=== PATIENT | female | born 1990 | race Two or more races ===

== ENCOUNTER 2019-04-08 06:16 | Emergency (ER) | payer BC, OTHER ==
[2019-04-08 07:15] VITALS: BMI 31.3
[2019-04-08 08:07] LABS: HCG,QUALITATIVE URINE Positive
[2019-04-08 08:09] LABS: PH,URINE 6.5 (5.0-8.0); URINE APPEARANCE CLEAR; URINE BILIRUBIN NEGATIVE (NEGATIVE); URINE COLOR YELLOW; URINE GLUCOSE (UA) NEGATIVE (NEGATIVE); URINE KETONE NEGATIVE (NEGATIVE); URINE LEUK ESTERASE NEGATIVE (NEGATIVE); URINE NITRITE NEGATIVE (NEGATIVE); URINE PROTEIN NEGATIVE (NEGATIVE); URINE UROBILINOGEN 0.2 mg/dL (0.2-1.0)
--- NOTE | 2019-04-08 08:27 | PDOC ---
Attending Attestation - Resident Resident Name: ChinolorenaDileep - ED Attending Attestation I have performed the following: I have examined & evaluated the patient, The case was reviewed & discussed with the resident, I agree w/resident's findings & plan, Exceptions are as noted - HPI HPI: 28 yo F presents with R breast pain and R pelvic pain. She has had a lump to the R breast for the past 6 months, for which she went to a free clinic and they told her it was benign. She has not had any workup for it. Denies breast discharge. She notices some lumps on the L side as well, but not tender like the R side. The tenderness and swelling worsens during her monthly menses. In addition, she has had R pelvic pain for the past few days, had a positive test at clinic. No ultrasound to date. Denies discharge, bleeding. - Physicial Exam PE: GENERAL: Awake, alert, and fully oriented, in no acute distress HEAD: No signs of trauma EYES: PERRLA, EOMI, sclera anicteric, conjunctiva clear ENT: Auricles normal inspection, hearing grossly normal, nares patent, oropharynx clear without exudates. Moist mucosa NECK: Normal ROM, supple, no lymphadenopathy, JVD, or masses LUNGS: Breath sounds equal, clear to auscultation bilaterally. No wheezes, and no crackles HEART: Regular rate and rhythm, normal S1 and S2, no murmurs, rubs or gallops ABDOMEN: Soft, +minimal R pelvic tenderness, normoactive bowel sounds. No guarding, no rebound. No masses EXTREMITIES: Normal range of motion, no edema. No clubbing or cyanosis. No cords, erythema, or tenderness NEUROLOGICAL: Cranial nerves II through XII grossly intact. Normal speech, normal gait. Motor and sensation intact SKIN: Warm, Dry, normal turgor, no rashes or lesions noted. BREAST: R breast with soft, mobile mass to lower outer quadrant. No discharge. No asymmetry. - Medical Decision Making Pt with small mobile soft mass in the R breast, likely fibrocystic changes, however, will obtain sono to further evaluate, especially in light of positive test. Will also obtain labs and pelvic sono to confirm IUP.
--- NOTE | 2019-04-08 08:44 | PDOC ---
History of Present Illness - General Chief Complaint: Pain Stated Complaint: BREAST PROBLEM Time Seen by Provider: 04/08/19 07:29 History Source: Patient Exam Limitations: No Limitations - History of Present Illness Initial Comments: 04/08/19 08:37 28F with no PMH who presents to the ER with multiple complaints. The patient states that she's had a breast lump in her R breast for "months" but due to insurance issues, has not had that worked up. The lump fluctuates in size depending on what part of her menstrual cycle she is on. She denies any redness or abnormal drainage. She also endorses 3-4 days of RLQ abdominal pain which is sharp, occurs every 3-4 hours, and is associated with nausea but no fever, chills, anorexia, diarrhea, vomiting, dysuria, or vaginal discharge. Past History - Past Medical History Allergies/Adverse Reactions: Allergies Allergy/AdvReac Type Severity Reaction Status Date / Time No Known Allergies Allergy Verified 04/08/19 06:42 Home Medications: Ambulatory Orders No Home Medications 0 dose .ROUTE UTDICT 06/12/13 COPD: No - Reproductive History (#): 0 Para: 0 - Immunization History Immunization Up to Date: Yes - Suicide/Smoking/Psychosocial Hx Smoking Status: Yes Smoking History: Never smoked Have you smoked in the past 12 months: No Number of Cigarettes Smoked Daily: 4 Information on smoking cessation initiated: No 'Breaking Loose' booklet given: 01/22/16 Hx Alcohol Use: No Drug/Substance Use Hx: No Substance Use Type: None Hx Substance Use Treatment: No Review of Systems - Review of Systems Able to Perform ROS?: Yes Comments:: 04/08/19 08:44 GENERAL/CONSTITUTIONAL: No fever or chills. No weakness. HEAD, EYES, EARS, NOSE AND THROAT: No change in vision. No ear pain or discharge. No sore throat. CARDIOVASCULAR: No chest pain, palpitations, or lightheadedness. BREAST: + for lump in R breast. RESPIRATORY: No cough, wheezing, shortness of breath, or hemoptysis. GASTROINTESTINAL: + for abdominal pain and nausea. No vomiting, diarrhea, or constipation. GENITOURINARY: No dysuria, frequency, hematuria, or change in urination. MUSCULOSKELETAL: No joint or muscle swelling or pain. No neck or back pain. SKIN: No rash or lesions. NEUROLOGIC: No headache, numbness, tingling, focal weakness, loss of consciousness, or change in strength/sensation. *Physical Exam - Vital Signs Last Vital Signs Temp Pulse Resp BP Pulse Ox 98.2 F 76 18 114/71 100 04/08/19 07:03 04/08/19 07:03 04/08/19 07:03 04/08/19 07:03 04/08/19 07:03 - Physical Exam Comments: 04/08/19 08:45 GENERAL: Well developed, well nourished. Awake and alert. No acute distress. HEENT: Normocephalic, atraumatic. Hearing grossly normal. Moist mucous membranes. PERRLA, EOMI. No conjunctival pallor. Sclera are non-icteric. NECK: Supple. Full ROM. No JVD. CARDIOVASCULAR: Regular rate and rhythm. No murmurs, rubs, or gallops. PULMONARY: No evidence of respiratory distress. Lungs clear to auscultation bilaterally. No wheezing, rales or rhonchi. BREAST: Done under supervision of Dr. Brito. R breast shows 2cm lump at 9oclock. ABDOMINAL: Soft. TTP in suprapubic abdomen. No RLQ tenderness. Non-distended. No rebound or guarding. GENITOURINARY: No CVA tenderness bilaterally. MUSCULOSKELETAL: Normal range of motion at all joints. No bony deformities or tenderness. EXTREMITIES: No cyanosis. No clubbing. No edema. No calf tenderness or swelling. SKIN: Warm and dry. Normal capillary refill. No rashes. No jaundice. NEUROLOGICAL: Alert, awake, appropriate. Cranial nerves 2-12 grossly intact. Normal speech. Gait is normal without ataxia. PSYCHIATRIC: Cooperative. Good eye contact. Appropriate mood and affect. ED Treatment Course - LABORATORY CBC & Chemistry Diagram: 04/08/19 08:33 04/08/19 08:33 - ADDITIONAL ORDERS Additional order review: Laboratory Results 04/08/19 07:45 Urine Color Yellow Urine Appearance Clear Urine pH 6.5 Ur Specific Fay 1.015 Urine Protein Negative Urine Glucose (UA) Negative Urine Ketones Negative Urine Blood Negative Urine Nitrite Negative Urine Bilirubin Negative Urine Urobilinogen 0.2 Ur Leukocyte Esterase Negative Urine HCG, Qual Positive - RADIOLOGY Radiology Studies Ordered: Category Date Time Status BREAST US RIGHT COMPLETE [US] Routine Ultrasound 04/08/19 08:17 Ordered TRANSVAGINAL US PREG [US] Stat Ultrasound 04/08/19 08:17 Ordered Medical Decision Making - Medical Decision Making 04/08/19 08:46 28F with no PMH, by home test, LMP February 28 who presents to the ER for complaints of a breast mass and RLQ pain. No confirmation of IUP. Will obtain b-quant and transvaginal US as well as breast US. Pending labs and imaging. Pt well appearing otherwise. UA/preg shows + w/o UTI. 04/08/19 13:36 US unclear for IUP. I have informed the patient to f/u for breast and pelvic sono/repeat labs. SW has seen the patient and given her information for f/u. *DC/Admit/Observation/Transfer Diagnosis at time of Disposition: Breast lump in female and not yet delivered Qualifiers: Trimester: first trimester Qualified Code(s): Z34.91 - Encounter for supervision of normal , unspecified, first trimester - Discharge Dispostion Disposition: HOME Condition at time of disposition: Stable Decision to Admit order: No - Referrals - Patient Instructions Printed Discharge Instructions: Support (Alternative Therapy) Additional Instructions: Please follow up on 04/10/19, for a repeat blood test and ultrasound. Please return to the ER if you develop any worsening pain, bleeding, nausea, vomiting, fever, chills, chest pain, or shortness of breath. - Post Discharge Activity
[2019-04-08 09:50] LABS: BASO % 0.5 % (0-2.0); HEMATOCRIT 43.2 % (32.4-45.2); HEMOGLOBIN 14.6 GM/dL (10.7-15.3); LYMPH % 18.3 % (8-40); MCH 29.3 pg (25.7-33.7); MCHC 33.9 g/dl (32.0-36.0); MEAN CELL VOLUME 86.6 fl (80-96); MEAN PLT VOLUME 8.4 fl (7.5-11.1); NEUT % 72.2 % (42.8-82.8); PLATELET COUNT 308 K/MM3 (134-434); RBC 4.99 M/mm3 (3.60-5.2); RDW 14.2 % (11.6-15.6); WHITE BLOOD COUNT 9.1 K/mm3 (4.0-10.0)
[2019-04-08 09:56] LABS: INR 1.04 (0.83-1.09); PROTHROMBIN TIME (PATIENT) 12.3 SEC (9.7-13.0)
[2019-04-08 10:37] LABS: ALBUMIN 3.7 g/dl (3.4-5.0); BILIRUBIN,TOTAL 0.5 mg/dL (0.2-1); BLOOD UREA NITROGEN 10.1 mg/dL (7-18); CALCIUM 8.8 mg/dL (8.5-10.1); CREATININE 0.7 mg/dL (0.55-1.3); POTASSIUM 4.2 mmol/L (3.5-5.1); TOT PROT 7.4 g/dl (6.4-8.2)
[2019-04-08 14:21] VITALS: BP 114/68; PULSE 70; TEMP 98
== END 2019-04-08 14:21 | disposition home or self-care (01) ==
LOC: JER 06:16
DX: N63.0 Unspecified lump in unspecified breast (principal); Z34.91 Encounter for supervision of normal pregnancy, unspecified, first trimester
CPT/HCPCS: 36415; 76641-TC-RT; 76817-TC; 80053; 81003; 84443; 84702; 84703; 85025; 85610; 99281-25

== ENCOUNTER 2019-04-10 14:00 | Emergency (ER) | payer SELFPAY ==
[2019-04-10 14:14] VITALS: BP 121/62; PULSE 86; TEMP 98.2; BMI 31.3
--- NOTE | 2019-04-10 14:16 | PDOC ---
History of Present Illness - General Chief Complaint: [facility] – [place] Stated Complaint: FOLLOW UP VISIT Time Seen by Provider: 04/10/19 14:15 History Source: Patient Exam Limitations: No Limitations Past History - Travel Traveled outside of the country in the last 30 days: No Close contact w/someone who was outside of country & ill: No - Past Medical History Allergies/Adverse Reactions: Allergies Allergy/AdvReac Type Severity Reaction Status Date / Time No Known Allergies Allergy Verified 04/08/19 06:42 Home Medications: Ambulatory Orders No Home Medications 0 dose .ROUTE UTDICT 06/12/13 COPD: No - Reproductive History (#): 0 Para: 0 - Immunization History Immunization Up to Date: Yes - Suicide/Smoking/Psychosocial Hx Smoking Status: Yes Smoking History: Never smoked Have you smoked in the past 12 months: No Number of Cigarettes Smoked Daily: 4 Information on smoking cessation initiated: No 'Breaking Loose' booklet given: 01/22/16 Hx Alcohol Use: No Drug/Substance Use Hx: No Substance Use Type: None Hx Substance Use Treatment: No Review of Systems - Review of Systems Able to Perform ROS?: Yes Comments:: 04/10/19 14:42 CONSTITUTIONAL: Absent: fever, chills, diaphoresis, generalized weakness, malaise, loss of appetite HEENT: Absent: rhinorrhea, nasal congestion, throat pain, throat swelling, difficulty swallowing, mouth swelling, ear pain, eye pain, visual Changes CARDIOVASCULAR: Absent: chest pain, loss of consciousness, palpitations, irregular heart rate, peripheral edema RESPIRATORY: Absent: cough, shortness of breath, dyspnea with exertion, orthopnea, wheezing, stridor, hemoptysis GASTROINTESTINAL: Absent: abdominal pain, abdominal distension, nausea, vomiting, diarrhea, constipation, melena, hematochezia GENITOURINARY: Absent: dysuria, frequency, urgency, hesitancy, hematuria, flank pain, genital pain MUSCULOSKELETAL: Absent: myalgia, arthralgia, joint swelling SKIN: Present: rash Absent: itching, pallor NEUROLOGIC: Absent: headache, focal weakness or paresthesias, dizziness, unsteady gait, seizure, mental status changes, bladder or bowel incontinence PSYCHIATRIC: Absent: anxiety, depression, suicidal or homicidal ideation, hallucinations. Is the patient limited Bulgarian proficient: No *Physical Exam - Vital Signs Last Vital Signs Temp Pulse Resp BP Pulse Ox 98.2 F 86 18 121/62 98 04/10/19 14:11 04/10/19 14:11 04/10/19 14:11 04/10/19 14:11 04/10/19 14:11 - Physical Exam Comments: 04/10/19 14:44 GENERAL: Well developed, well nourished. Awake and alert. No acute distress. ABDOMINAL: Soft. Non-tender. Non-distended. No rebound or guarding. No organomegaly. Normoactive bowel sounds. MUSCULOSKELETAL Normal range of motion at all joints. No bony deformities or tenderness. No CVA tenderness. EXTREMITIES: No cyanosis. No clubbing. No edema. No calf tenderness. SKIN: Blisters/wheals present to the R arch of the foot. Warm and dry. Normal capillary refill. No jaundice. NEUROLOGICAL: Alert, awake, appropriate. Cranial nerves 2-12 intact. No deficits to light touch and temperature in face, upper extremities and lower extremities. No motor deficits in the in face, upper extremities and lower extremities. Normoreflexic in the upper and lower extremities. Normal speech. Toes are down- going bilaterally. Gait is normal without ataxia. PSYCHIATRIC: Cooperative. Good eye contact. Appropriate mood and affect. Medical Decision Making - Medical Decision Making 04/10/19 14:45 the patient is a 28-year-old female with no past medical history who presents to the ER today for repeat beta testing and repeat ultrasound to evaluate her . She was seen 2 days ago in the ED and was told she might have an early IUP but to follow up in 2 days to confirm. She also notes she has got a rash to the inside of her foot. She states that she used a bug spray yesterday and the blister started afterwards. Denies fevers, chills, abdominal pain, vaginal bleeding, frequency, urgency and hematuria. A/P: Repeat beta and ultrasound On exam no abdominal tenderness. The right arch of the foot shows wheals consistent with a allergic reaction. Potentially to the bug spray or may be bug bites. Treat with bacitracin Patient to go to ultrasound and have her blood drawn for evaluation. Reevaluate 04/10/19 15:32 TVUS is unchanged from 04/08/19, no pole identified yet, however there is a gestational sac in the uterus. 4cm R ovarian cyst as well. Beta-Hcg doubled in the last two days, suspect normal at 5 weeks, still early for a pole DC home with OB follow up in one week I discussed the physical exam findings, ancillary test results and final diagnoses with the patient. I answered all of the patient's questions. The patient was satisfied with the care received and felt comfortable with the discharge plan and treatment plan. The Patient agrees to follow up with the primary care physician/specialist within 24-72 hours. Return precautions were given. *DC/Admit/Observation/Transfer Diagnosis at time of Disposition: Qualifiers: Weeks of gestation: less than 8 weeks Qualified Code(s): Z3A.01 - Less than 8 weeks gestation of - Discharge Dispostion Disposition: HOME Condition at time of disposition: Stable Decision to Admit order: No - Referrals Referrals: Kandis Bashir DO [Staff Physician] - - Patient Instructions Printed Discharge Instructions: DI for -- Discomforts and Remedies Additional Instructions: Your ultrasound is unchanged since Thursday, but your lab work shows increasing hormone I suspect that this is a normal Please follow up with OB in one week for repeat ultrasound and blood work You may use bacitracin on your foot Return to the ER if you have vaginal bleeding, fever, abdominal pain, or if you have any changes in your symptoms - Post Discharge Activity
== END 2019-04-10 15:39 | disposition home or self-care (01) ==
LOC: JERFT 14:00
DX: O36.80X0 Pregnancy with inconclusive fetal viability, not applicable or unspecified (principal); Z32.01 Encounter for pregnancy test, result positive; Z3A.01 Less than 8 weeks gestation of pregnancy; T78.40XA Allergy, unspecified, initial encounter; X58.XXXA Exposure to other specified factors, initial encounter
CPT/HCPCS: 36415; 76817-TC; 84702; 99281-25

== ENCOUNTER 2019-04-21 05:13 | Emergency (ER) | payer OTHER ==
[2019-04-21 05:36] VITALS: BP 120/83; PULSE 83; TEMP 98.3; BMI 31.3
[2019-04-21 08:18] LABS: BASO % 0.8 % (0-2.0); EOS % 2.3 % (0-4.5); HEMATOCRIT 40.1 % (32.4-45.2); HEMOGLOBIN 13.6 GM/dL (10.7-15.3); LYMPH % 19.4 % (8-40); MEAN CELL VOLUME 85.4 fl (80-96); MEAN PLT VOLUME 8.1 fl (7.5-11.1); MONO % 5.7 % (3.8-10.2); NEUT % 71.8 % (42.8-82.8); RDW 13.5 % (11.6-15.6); WHITE BLOOD COUNT 9.9 K/mm3 (4.0-10.0)
--- NOTE | 2019-04-21 08:27 | PDOC ---
History of Present Illness - General Chief Complaint: Pain Stated Complaint: ABD PAIN Time Seen by Provider: 04/21/19 05:23 History Source: Patient Exam Limitations: No Limitations - History of Present Illness Initial Comments: 28 yo F presents at approximately 7 WGA with intermittent vag bleeding, pelvic cramping. She has had prior ultrasounds in the ED, did not find an IUP to date. She has been unable to follow up with a buckle wire inserter due to insurance issues, so she has not yet had an ultrasound that has confirmed it. She states she had vag bleeding for 3 days this past week, which had her concerned. Denies vag discharge, dysuria. Past History - Past Medical History Allergies/Adverse Reactions: Allergies Allergy/AdvReac Type Severity Reaction Status Date / Time No Known Allergies Allergy Verified 04/21/19 05:36 Home Medications: Ambulatory Orders No Home Medications 0 dose .ROUTE UTDICT 06/12/13 COPD: No - Reproductive History (#): 0 Para: 0 - Immunization History Immunization Up to Date: Yes - Suicide/Smoking/Psychosocial Hx Smoking Status: Yes Smoking History: Never smoked Have you smoked in the past 12 months: No Number of Cigarettes Smoked Daily: 4 'Breaking Loose' booklet given: 01/22/16 Hx Alcohol Use: No Drug/Substance Use Hx: No Substance Use Type: None Hx Substance Use Treatment: No Review of Systems - Review of Systems Able to Perform ROS?: Yes Comments:: GENERAL/CONSTITUTIONAL: No fever or chills. No weakness. HEAD, EYES, EARS, NOSE AND THROAT: No change in vision. No ear pain or discharge. No sore throat. CARDIOVASCULAR: No chest pain or shortness of breath. RESPIRATORY: No cough, wheezing, or hemoptysis. GASTROINTESTINAL: No nausea, vomiting, diarrhea or constipation. GENITOURINARY: No dysuria, frequency, or change in urination. MUSCULOSKELETAL: No joint or muscle swelling or pain. No neck or back pain. SKIN: No rash. NEUROLOGIC: No headache, vertigo, loss of consciousness, or change in strength/ sensation. ENDOCRINE: No increased thirst. No abnormal weight change. HEMATOLOGIC/LYMPHATIC: No anemia, easy bleeding, or history of blood clots. ALLERGIC/IMMUNOLOGIC: No hives or skin allergy. *Physical Exam - Vital Signs Last Vital Signs Temp Pulse Resp BP Pulse Ox 98.3 F 83 14 120/83 100 04/21/19 05:34 04/21/19 05:34 04/21/19 05:34 04/21/19 05:34 04/21/19 05:34 - Physical Exam Comments: GENERAL: Awake, alert, and fully oriented, in no acute distress HEAD: No signs of trauma EYES: PERRLA, EOMI, sclera anicteric, conjunctiva clear ENT: Auricles normal inspection, hearing grossly normal, nares patent, oropharynx clear without exudates. Moist mucosa NECK: Normal ROM, supple, no lymphadenopathy, JVD, or masses LUNGS: Breath sounds equal, clear to auscultation bilaterally. No wheezes, and no crackles HEART: Regular rate and rhythm, normal S1 and S2, no murmurs, rubs or gallops ABDOMEN: Soft, nontender, normoactive bowel sounds. No guarding, no rebound. No masses EXTREMITIES: Normal range of motion, no edema. No clubbing or cyanosis. No cords, erythema, or tenderness NEUROLOGICAL: Cranial nerves II through XII grossly intact. Normal speech, normal gait. Motor and sensation intact SKIN: Warm, dry, normal turgor, no rashes or lesions noted. ED Treatment Course - LABORATORY CBC & Chemistry Diagram: 04/21/19 07:46 04/21/19 07:46 - RADIOLOGY Radiology Studies Ordered: Category Date Time Status TRANSVAGINAL US PREG [US] Stat Ultrasound 04/21/19 08:25 Ordered Medical Decision Making - Medical Decision Making Ultrasound obtained, heart motion detected, rate 120s. She has f/u with the clinic this week. *DC/Admit/Observation/Transfer Diagnosis at time of Disposition: Qualifiers: Weeks of gestation: less than 8 weeks Qualified Code(s): Z3A.01 - Less than 8 weeks gestation of Abdominal pain Qualifiers: Abdominal location: unspecified location Qualified Code(s): R10.9 - Unspecified abdominal pain - Discharge Dispostion Disposition: HOME Condition at time of disposition: Stable Decision to Admit order: No - Referrals - Patient Instructions Printed Discharge Instructions: DI for Threatened - Post Discharge Activity
[2019-04-21 08:55] LABS: PLATELET COUNT 257 K/MM3 (134-434)
[2019-04-21 09:08] LABS: ALBUMIN 3.4 g/dl (3.4-5.0); BILIRUBIN,TOTAL 0.3 mg/dL (0.2-1); BLOOD UREA NITROGEN 7.1 mg/dL (7-18); CALCIUM 9.1 mg/dL (8.5-10.1); CREATININE 0.7 mg/dL (0.55-1.3); TOT PROT 6.9 g/dl (6.4-8.2)
[2019-04-21 09:09] LABS: EPI CELLS 14.7 /HPF (0-5/HPF); HYALINE CASTS 7 /lpf (0-8); PH,URINE 7.5 (5.0-8.0); URINE APPEARANCE CLEAR; URINE BACTERIA 1633.4 /hpf (NEGATIVE); URINE BILIRUBIN NEGATIVE (NEGATIVE); URINE COLOR YELLOW; URINE GLUCOSE (UA) NEGATIVE (NEGATIVE); URINE KETONE NEGATIVE (NEGATIVE); URINE LEUK ESTERASE TRACE (NEGATIVE); URINE NITRITE NEGATIVE (NEGATIVE); URINE PROTEIN NEGATIVE (NEGATIVE); URINE RBC 5 /hpf (0-4); URINE UROBILINOGEN 0.2 mg/dL (0.2-1.0); URINE WBC 12 /hpf (0-5)
== END 2019-04-21 11:13 | disposition home or self-care (01) ==
LOC: JER 05:13
DX: N93.9 Abnormal uterine and vaginal bleeding, unspecified (principal); R10.9 Unspecified abdominal pain; O26.891 Other specified pregnancy related conditions, first trimester; Z3A.01 Less than 8 weeks gestation of pregnancy
CPT/HCPCS: 36415; 76801-TC; 80053; 81003; 84702; 85025; 86850; 86900; 86901; 99283-25

== ENCOUNTER 2019-05-22 09:10 | Emergency (ER) | payer OTHER | END 2019-05-22 13:04 | disposition home or self-care (01) | LOC: JER 09:10 ==

== ENCOUNTER 2019-11-13 12:20 | Inpatient (IN) | payer OTHER ==
[2019-11-13] MEDS ORDERED: DEXTROSE 5%-LACTATED RINGERS 1,000 ML IV SCH ×2 (12:30→16:45)
[2019-11-13] MEDS ORDERED: AMPICILLIN - 2 GM in SODIUM CHLORIDE 100 ML IVPB ONE (13:00)
[2019-11-13 13:36] VITALS: BMI 39.4
[2019-11-13 13:42] LABS: BASO % 0.7 % (0-2.0); EOS % 1.9 % (0-4.5); HEMATOCRIT 38.4 % (32.4-45.2); HEMOGLOBIN 12.7 GM/dL (10.7-15.3); LYMPH % 14.9 % (8-40); MEAN CELL VOLUME 81.9 fl (80-96); MEAN PLT VOLUME 7.7 fl (7.5-11.1); MONO % 7.7 % (3.8-10.2); NEUT % 74.8 % (42.8-82.8); PLATELET COUNT 293 K/MM3 (134-434); RBC 4.69 M/mm3 (3.60-5.2); RDW 13.8 % (11.6-15.6); WHITE BLOOD COUNT 12.8 K/mm3 (4.0-10.0)
[2019-11-13 13:50] LABS: INR 0.92 (0.83-1.09); PROTHROMBIN TIME (PATIENT) 10.9 SEC (9.7-13.0)
[2019-11-13 13:52] LABS: ACTIVATED PTT 29.1 SECONDS (25.2-36.5)
[2019-11-13 14:07] LABS: BLOOD UREA NITROGEN 7.9 mg/dL (7-18); CALCIUM 8.8 mg/dL (8.5-10.1); CREATININE 0.8 mg/dL (0.55-1.3)
[2019-11-13] MEDS ORDERED: BUTORPHANOL TARTRATE 2 MG/ML VIAL IVPB ONE (14:45)
[2019-11-13] MEDS ORDERED: PROMETHAZINE HCL 25 MG/1 ML VIAL IVPB ONE (14:45)
[2019-11-13] MEDS ORDERED: PROMETHAZINE HCL 25 MG/1 ML VIAL ONE (14:52)
[2019-11-13] MEDS ORDERED: BUTORPHANOL TARTRATE 1 MG/ML VIAL ONE ×2 (14:52)
[2019-11-13] MEDS ORDERED: AMPICILLIN SODIUM 1 GM VIAL ONE (14:59)
[2019-11-13] MEDS ORDERED: OXYTOCIN 20 UNITS in 0.9% NS 20 UNIT/1,000 ML INFUS.BAG IV ONE (15:05)
[2019-11-13] MEDS ORDERED: LIDOCAINE HCL 1% PRESERVATIVE FREE - 30ML VIAL ONE (15:05)
--- NOTE | 2019-11-13 16:33 | HP ---
Past Medical History - Admission Chief Complaint: Labor pain History of Present Illness: 29 yo , LMP 03/02/19, EDC 12/10/19, @ 36.3 weeks gestation, admitted for labor pain. Upon admission she was 3cm dilated. History Source: Patient Limitations to Obtaining History: No Limitations - Past Medical History ...: 1 ...Para: 0 ...Term: 0 ...: 0 ...Spon : 0 ...Induced : 0 ...Multiple Gestation: 0 ...LMP: 03/02/19 ... Weeks Gestation by Dates: 36.3 ...EDC by Dates: 12/07/19 ...EDC by Sono: 12/08/18 - Past Surgical History Past Surgical History: Yes: None Hx Myomectomy: No Hx Transabdominal Cerclage: No - Smoking History Smoking history: Never smoked Have you smoked in the past 12 months: No Aproximately how many cigarettes per day: 4 - Alcohol/Substance Use Hx Alcohol Use: No - Social History Usual Living Arrangement: Yes: With Significant Other History of Recent Travel: No Home Medications - Allergies Allergies/Adverse Reactions: Allergies Allergy/AdvReac Type Severity Reaction Status Date / Time kiwi Allergy Intermediate Swelling Verified 11/13/19 13:16 - Home Medications Home Medications: Ambulatory Orders Vitamins (Sjr) - 1 tab PO DAILY 11/13/19 Family Medical History Family History: Unremarkable Review of Systems - Review of Systems Constitutional: reports: No Symptoms Eyes: reports: No Symptoms HENT: reports: No Symptoms Neck: reports: No Symptoms Cardiovascular: reports: No Symptoms Respiratory: reports: No Symptoms Gastrointestinal: reports: No Symptoms Genitourinary: reports: Pain Breasts: reports: No Symptoms Reported Musculoskeletal: reports: No Symptoms Integumentary: reports: No Symptoms Psychiatric: reports: No Symptoms Pain Intensity: 9 Physical Exam - Maternity Vital Signs: Vital Signs Temperature 98.1 F 11/13/19 15:00 Pulse Rate 75 11/13/19 15:00 Respiratory Rate 11/13/19 15:00 Blood Pressure 135/86 11/13/19 15:00 O2 Sat by Pulse Oximetry (%) Constitutional: Yes: Well Nourished Eyes: Yes: Conjunctiva Clear HENT: Yes: Atraumatic Neck: Yes: Supple Cardiovascular: Yes: Regular Rate and Rhythm Lungs: Clear to auscultation - Abdominal Exam/OB Number of Fetuses: Single Presentation: Vertex Contractions: Yes Regularity: Regular Intensity: Mod/Strong - Vaginal Exam/OB Vaginal Bleediing: No Dilatation (cm): 3 Presentation: Vertex/Position - Physical Exam ...Motor Strength: WNL Psychiatric: Yes: Alert, Oriented - Labs Lab Results: CBC, BMP 11/13/19 13:30 11/13/19 13:30 Problem List - Problems (1) 36 weeks gestation of Problems reviewed: Yes Code(s): Z3A.36 - 36 WEEKS GESTATION OF (2) contractions Problems reviewed: Yes Code(s): O47.9 - FALSE LABOR, UNSPECIFIED (3) labor with delivery Problems reviewed: Yes Code(s): O60.10X0 - LABOR W DELIVERY, UNSP TRIMESTER, UNSP Assessment/Plan 36 weeks gestation Active labor Admit to L&D
[2019-11-13] MEDS ORDERED: WITCH HAZEL 50% (TUCKS) 40 PAD/JAR PAD TP PRN (16:35)
[2019-11-13] MEDS ORDERED: BENZOCAINE 28 GM HEMORRHOIDAL OINTMENT TP PRN (16:35)
[2019-11-13] MEDS ORDERED: BENZOCAINE 20% 57 GM BOTTLE TP PRN (16:35)
[2019-11-13] MEDS ORDERED: METHYLERGONOVINE MALEATE 0.2 MG/1 ML AMP IM PRN (16:35)
[2019-11-13] MEDS ORDERED: BISACODYL 10 MG SUPP.RECT RC PRN (16:35)
--- NOTE | 2019-11-13 16:40 | PN ---
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 Nose / Oropharynx suctioned @ perineum. Cord clamped and cut. Baby handed to nurse. Placenta expelled spontaneously intact. Episiotomy repaired with 2.0 chromic.
[2019-11-13] MEDS ORDERED: OXYTOCIN 20 UNITS in 0.9% NS 20 UNIT/1,000 ML INFUS.BAG IV SCH (16:45)
[2019-11-13] MEDS: AMPICILLIN - 1 GM in SODIUM CHLORIDE 100 ML IVPB SCH (16:50)
[2019-11-13] MEDS ORDERED: IBUPROFEN 600 MG TABLET (FP) PO ONE (16:55)
[2019-11-13] MEDS ORDERED: ACETAMINOPHEN 325 MG TABLET (FP) ONE (16:55)
[2019-11-13] MEDS: ACETAMINOPHEN 325 MG TABLET (FP) PO PRN ×2 (16:57→20:15)
[2019-11-13] MEDS: IBUPROFEN 600 MG TABLET (FP) PO PRN ×2 (16:57→20:16)
[2019-11-14] MEDS: AMPICILLIN - 1 GM in SODIUM CHLORIDE 100 ML IVPB SCH ×2 (00:33→04:25)
[2019-11-14] MEDS: ACETAMINOPHEN 325 MG TABLET (FP) PO PRN ×3 (04:15→20:25)
[2019-11-14] MEDS: IBUPROFEN 600 MG TABLET (FP) PO PRN ×3 (04:15→20:26)
[2019-11-14 07:24] LABS: POC NITRAZINE POS
[2019-11-14 08:33] LABS: BASO % 0.4 % (0-2.0); EOS % 1.2 % (0-4.5); HEMATOCRIT 30.5 % (32.4-45.2); HEMOGLOBIN 10.1 GM/dL (10.7-15.3); LYMPH % 14.2 % (8-40); MCH 27.2 pg (25.7-33.7); MCHC 33.2 g/dl (32.0-36.0); MEAN CELL VOLUME 81.8 fl (80-96); MEAN PLT VOLUME 7.9 fl (7.5-11.1); MONO % 7.9 % (3.8-10.2); NEUT % 76.3 % (42.8-82.8); PLATELET COUNT 232 K/MM3 (134-434); RBC 3.73 M/mm3 (3.60-5.2); RDW 13.8 % (11.6-15.6); WHITE BLOOD COUNT 13.2 K/mm3 (4.0-10.0)
[2019-11-14] MEDS: PRENATAL VITAMINS W/ FOLIC ACID TABLET (FP) PO SCH (09:36)
[2019-11-14] MEDS ORDERED: FLU VACCINE QUAD 60 MCG/0.5 ML (MDV 19-20) IM ONE (10:00)
[2019-11-14] MEDS ORDERED: FLU VACC QS2019-20(6MOS UP)/PF 60 MCG/0.5 ML SYRINGE IM ONE (10:00)
--- NOTE | 2019-11-14 10:10 | PN ---
Post Note - Post Date of Delivery: 11/13/19 Post Day: 1 Vital Signs: Vital Signs - 24 hr 11/13/19 11/13/19 11/13/19 13:14 14:00 15:00 Temperature 98.3 F 98.2 F 98.1 F Pulse Rate 103 H 91 H 75 Respiratory 20 20 20 Rate Blood Pressure 127/77 132/81 135/86 O2 Sat by Pulse Oximetry (%) 11/13/19 11/13/19 11/13/19 16:30 16:45 17:00 Temperature 98.3 F Pulse Rate 96 H 92 H 81 Respiratory 18 18 18 Rate Blood Pressure 129/76 133/72 125/79 O2 Sat by Pulse 100 100 100 Oximetry (%) 11/13/19 11/13/19 11/13/19 17:15 17:44 21:01 Temperature 97.9 F 98.0 F Pulse Rate 89 94 H 92 H Respiratory 18 20 20 Rate Blood Pressure 134/73 130/77 127/73 O2 Sat by Pulse 100 Oximetry (%) 11/14/19 04:00 Temperature 97.7 F Pulse Rate 80 Respiratory 20 Rate Blood Pressure 118/80 O2 Sat by Pulse Oximetry (%) Labs: Laboratory Results - last 24 hr 11/13/19 11/13/19 11/13/19 12:30 13:30 13:30 WBC 12.8 H RBC 4.69 Hgb 12.7 Hct 38.4 MCV 81.9 MCH 27.0 MCHC 33.0 RDW 13.8 Plt Count 293 MPV 7.7 Absolute Neuts (auto) 9.6 H Neutrophils % 74.8 Lymphocytes % 14.9 D Monocytes % 7.7 Eosinophils % 1.9 Basophils % 0.7 Nucleated RBC % 0 PT with INR 10.90 INR 0.92 PTT (Actin FS) 29.1 Sodium Potassium Chloride Carbon Dioxide Anion Gap BUN Creatinine Est GFR (CKD-EPI)AfAm Est GFR (CKD-EPI)NonAf Random Glucose Calcium POC Vag Fld Nitrazine Pos RPR Titer Blood Type Antibody Screen 11/13/19 11/13/19 11/13/19 13:30 13:30 13:30 WBC RBC Hgb Hct MCV MCH MCHC RDW Plt Count MPV Absolute Neuts (auto) Neutrophils % Lymphocytes % Monocytes % Eosinophils % Basophils % Nucleated RBC % PT with INR INR PTT (Actin FS) Sodium 140 Potassium 4.0 Chloride 110 H Carbon Dioxide 25 Anion Gap 5 L BUN 7.9 Creatinine 0.8 Est GFR (CKD-EPI)AfAm 117.10 Est GFR (CKD-EPI)NonAf 101.04 Random Glucose 84 Calcium 8.8 POC Vag Fld Nitrazine RPR Titer Nonreactive Blood Type O POSITIVE Antibody Screen Negative 11/14/19 07:28 WBC 13.2 H RBC 3.73 Hgb 10.1 L Hct 30.5 L D MCV 81.8 MCH 27.2 MCHC 33.2 RDW 13.8 Plt Count 232 D MPV 7.9 Absolute Neuts (auto) 10.1 H Neutrophils % 76.3 Lymphocytes % 14.2 Monocytes % 7.9 Eosinophils % 1.2 Basophils % 0.4 Nucleated RBC % 0 PT with INR INR PTT (Actin FS) Sodium Potassium Chloride Carbon Dioxide Anion Gap BUN Creatinine Est GFR (CKD-EPI)AfAm Est GFR (CKD-EPI)NonAf Random Glucose Calcium POC Vag Fld Nitrazine RPR Titer Blood Type Antibody Screen - Subjective Subjective: No Complaints - Objective Afebrile: Yes Breast: Not engorged Abdomen: Soft, Non-tender Uterus: Fundus firm Vagina: Scant lochia Extremities: Non-tender - Assessment/Plan (1) Normal vaginal delivery Assessment: S/P Normal Plan: Routine Care
[2019-11-14] MEDS ORDERED: SENNOSIDES/DOCUSATE COMBO (SENNA PLUS) TABLET (UD) PO PRN (22:00)
[2019-11-14 22:25] VITALS: PULSE 83; TEMP 98
[2019-11-15] MEDS: ACETAMINOPHEN 325 MG TABLET (FP) PO PRN (04:44)
[2019-11-15] MEDS: IBUPROFEN 600 MG TABLET (FP) PO PRN (04:45)
--- NOTE | 2019-11-15 06:10 | DS ---
Physical Exam-SIDE FRAMER Vital Signs: Vital Signs Temperature 98 F 11/14/19 22:00 Pulse Rate 83 11/14/19 22:00 Respiratory Rate 18 11/14/19 22:00 Blood Pressure 117/71 11/14/19 22:00 O2 Sat by Pulse Oximetry (%) 100 11/13/19 17:15 Constitutional: Yes: Well Nourished Eyes: Yes: Conjunctiva Clear HENT: Yes: Atraumatic Neck: Yes: Supple Cardiovascular: Yes: Regular Rate and Rhythm Respiratory: Yes: Regular Gastrointestinal: Yes: Normal Bowel Sounds Pelvis: Yes: WNL External Genitalia: Yes: Normal Vaginal Exam: Yes: Normal ....Post : Yes: Uterus firm Breast(s): Yes: WNL Musculoskeletal: Yes: WNL Extremities: Yes: WNL Neurological: Yes: Alert, Oriented ...Motor Strength: WNL Psychiatric: Yes: Alert, Oriented Labs: CBC, BMP 11/14/19 07:28 11/13/19 13:30 Delivery - Delivery Vaginal Delivery: Spontaneous Type of Anesthesia: Local Episiotomy/Laceration: Midline EBL (cc): 300 Delivery, Single - Stages of Labor Date 1st Stage Initiatied: 11/13/19 Time 1st Stage Initiated: 12:00 Date 2nd Stage Initiated: 11/13/19 Time 2nd Stage Initiated: 15:50 Date of Delivery: 11/13/19 Time of Delivery: 16:08 Time Placenta Delivered: 16:11 - Condition of Systems Analyst Developer/High Lift Operator Present: Yes Name: Ramila Guzman Gender: Female Position: OP Total Hours ROM (Hrs/Mins): 5hrs 11min - 1 Minute Total Score: 8 5 Minutes Total Score: 9 - [place] Feeding Plan Initial Plan: Exclusive throughout hospitalization Discharge Summary Problems reviewed: Yes Current Active Problems 36 weeks gestation of (Acute) Normal vaginal delivery (Acute) contractions (Acute) labor with delivery (Acute) Procedures: Principal: Normal vaginal delivery Hospital Course: Routine care Health Concerns: None Plan of Treatment: Ambulation Analgesia as needed F/U with MD in 6 weeks Goals: Resume normal activities in 6 weeks Condition: Good - Instructions Diet, Activity, Other Instructions: Physical activity Resume your normal everyday activity as tolerated no heavy lifting or exercise until seen by your surgeon. You may walk unlimited alexandra of and climb stairs. You may resume driving the car when you feel safe and comfortable behind the wheel. No sexual activity as instructed. Wound care If you have a bandage, leave it on, and keep dry for 48-72 hours. After that time discard the outer bandage. If they are tapes on the skin under the out of bandage leave them in place. They will peel off in the next 7 to 10 days. Do Not Peel them off. You may shower the day after surgery. If there are tapes present on the skin, you may shower over them. Diet There are no dietary restrictions. Eat healthy, high-fiber foods. Drink 6 to 8 glasses of liquid each day. This will assist in keeping your bowels are regular. Pain management You may take Tylenol or acetaminophen or Ibuprofen (for example, Motrin, Advil etc.) from my pain prescription medication is ordered should be taken as prescribed for moderate to severe pain. Call MD for any of the following: Severe pain not relieved by medication Fever of 101 or higher Excessive bleeding or drainage on dressing Inability to urinate Disposition: HOME - Home Medications Comprehensive Discharge Medication List: Ambulatory Orders Vitamins (Sjr) - 1 tab PO DAILY 11/13/19 Ibuprofen [Motrin -] 600 mg PO TID #21 tablet 11/14/19
[2019-11-15] MEDS: PRENATAL VITAMINS W/ FOLIC ACID TABLET (FP) PO SCH (09:56)
[2019-11-15 10:18] VITALS: BP 122/66
== END 2019-11-15 16:30 | disposition home or self-care (01) | DRG 560 ==
LOC: JLDR 12:20 → J3W 17:40
PROVIDERS: ADMIT Obstetrics & Gynecology; ATTEND Obstetrics & Gynecology
PROC: 10E0XZZ Delivery of Products of Conception, External Approach (ICD-10-PCS; principal; 2019-11-13)
PROC: 0W8NXZZ Division of Female Perineum, External Approach (ICD-10-PCS; 2019-11-13)
DX: O60.14X0 Preterm labor third trimester with preterm delivery third trimester, not applicable or unspecified (principal); Z3A.36 36 weeks gestation of pregnancy; Z37.0 Single live birth
CPT/HCPCS: 36415; 59409; 80048; 83986-QW; 85025; 85610; 85730; 86593; 86850; 86900; 86901